=== PATIENT | female | born 1990 ===

== ENCOUNTER 2017-07-10 09:07 | Emergency (ER) | payer OTHER, SELFPAY ==
[2017-07-10] MEDS ORDERED: Sodium Chloride 0.9% 1,000 ML IV STA (09:42)
--- NOTE | 2017-07-10 09:45 | ED PDOC ---
HPI: Headache Time Seen by Provider: 07/10/17 09:29 Chief Complaint (Nursing): Headache Chief Complaint (Provider): Headache History Per: Patient History/Exam Limitations: no limitations Onset/Duration Of Symptoms: Days (x7) Current Symptoms Are (Timing): Still Present Additional Complaint(s): Nano Lassiter is a 27 year old female presenting to the ED for an evaluation of a 1 week history of a frontal headache. She denies fever, trauma, photophobia , or stiff neck. PMD: Non CPH Provider: MD Geovani Past Medical History Reviewed: Historical Data, Nursing Documentation, Vital Signs - Medical History PMH: Migraine - Family History Family History: States: Unknown Family Hx - Home Medications Home Medications: Ambulatory Orders Medication Instructions Recorded Naproxen [Naprosyn] 500 mg PO Q12H #20 tab 07/10/17 traMADol [Ultram] 50 mg PO Q8 #10 tab 07/10/17 - Allergies Allergies/Adverse Reactions: Allergies Allergy/AdvReac Type Severity Reaction Status Date / Time No Known Allergies Allergy Verified 07/10/17 09:33 Review of Systems ROS Statement: Except As Marked, All Systems Reviewed And Found Negative Constitutional: Negative for: Fever Eyes: Negative for: Other (no photophobia) Musculoskeletal: Negative for: Neck Pain (no stiff neck) Neurological: Positive for: Headache (frontal) Physical Exam - Reviewed Nursing Documentation Reviewed: Yes Vital Signs Reviewed: Yes - Physical Exam Appears: Positive for: Well, Non-toxic, No Acute Distress Head Exam: Positive for: ATRAUMATIC, NORMAL INSPECTION, NORMOCEPHALIC Skin: Positive for: Normal Color, Warm, Dry Eye Exam: Positive for: Normal appearance, EOMI, PERRL (PERRL-A) ENT: Positive for: Normal ENT Inspection Neck: Positive for: Normal, Painless ROM, Supple Cardiovascular/Chest: Positive for: Regular Rate, Rhythm, Chest Non Tender Respiratory: Positive for: Normal Breath Sounds. Negative for: Respiratory Distress Gastrointestinal/Abdominal: Positive for: Normal Exam, Bowel Sounds, Soft. Negative for: Tenderness Back: Positive for: Normal Inspection Extremity: Positive for: Normal ROM Neurologic/Psych: Positive for: Alert (x3), Oriented. Negative for: Motor/ Sensory Deficits (or focal deficits ) Medical Decision Making Medical Decision Making: Time: 09:29 Impression: Headache Plan: * CT Head W/O Contrast * ED Urine * NS 0.9% 1,000 ml IV 100 mls/hr * Reglan 10 mg IVP * Toradol 30 mg IVP * Reevaluation Scribe Attestation: Documented by Rosa Isela Jimenez, acting as a scribe for Husam Anna MD. Provider Scribe Attestation: All medical record entries made by the Scribe were at my direction and personally dictated by me. I have reviewed the chart and agree that the record accurately reflects my personal performance of the history, physical exam, medical decision making, and the department course for this patient. I have also personally directed, reviewed, and agree with the discharge instructions and disposition. Disposition - Clinical Impression Clinical Impression: Migraine - Patient ED Disposition Is Patient to be Admitted: No Counseled Patient/Family Regarding: Studies Performed, Diagnosis, Need For Followup, Rx Given - Disposition Referrals: [facility] [Outside] Disposition: Routine/Home Disposition Time: 11:20 Condition: FAIR Prescriptions: Naproxen [Naprosyn] 500 mg PO Q12H #20 tab traMADol [Ultram] 50 mg PO Q8 #10 tab Instructions: Migraine Headache (ED) Forms: [facility] ([place]an)
[2017-07-10 10:12] VITALS: TEMP 97
--- NOTE | 2017-07-10 10:48 | CT ---
PROCEDURE: CT HEAD WITHOUT CONTRAST. HISTORY: headache COMPARISON: None available. TECHNIQUE: Axial computed tomography images were obtained through the head/brain without intravenous contrast. Radiation dose: Total exam DLP = 776 mGy-cm. This CT exam was performed using one or more of the following dose reduction techniques: Automated exposure control, adjustment of the mA and/or kV according to patient size, and/or use of iterative reconstruction technique. FINDINGS: HEMORRHAGE: No intracranial hemorrhage. BRAIN: No mass effect or edema. Normal francis-white matter differentiation and density. No suspicious extra-axial fluid collection. Midline brain and appears unremarkable including the corpus callosum on the craniocervical junction. . VENTRICLES: Unremarkable. No hydrocephalus. CALVARIUM: Unremarkable. PARANASAL SINUSES: Unremarkable as visualized. No significant inflammatory changes. MASTOID AIR CELLS: Unremarkable as visualized. No inflammatory changes. OTHER FINDINGS: None. IMPRESSION: Normal CT of the Head.
[2017-07-10 11:54] VITALS: BP 108/61; PULSE 68; RESP 19; O2SAT 99
== END 2017-07-10 11:58 | disposition home or self-care (01) ==
LOC: H.ER 09:07
DX: G43.909 Migraine, unspecified, not intractable, without status migrainosus (principal)
CPT/HCPCS: 70450; 81025; 96374; 96375; 99284; J1885; J2765; J7040

== ENCOUNTER 2018-02-14 16:37 | Emergency (ER) | payer OTHER, SELFPAY ==
[2018-02-14 16:51] VITALS: BP 117/80; PULSE 60; RESP 16; TEMP 98.4; O2SAT 97
--- NOTE | 2018-02-14 17:08 | ED PDOC ---
HPI: Back Time Seen by Provider: 02/14/18 17:00 Chief Complaint (Nursing): Back Pain Chief Complaint (Provider): Back Pain History Per: Patient History/Exam Limitations: no limitations Onset/Duration Of Symptoms: Days (x 2) Current Symptoms Are (Timing): Still Present Additional Complaint(s): Nano is a 27 y/o female with a history of a herniated disc who presents to the ED complaining of back pain after slipping on the snow on Monday. Patient states that she was taken to [facility] via EMS and "they did nothing for me." She was given IM meds and a motrin rx but complains of persistent pain. She thinks that the slip may have aggravated her herniated disc. PMD: Ilya Olivo Past Medical History Reviewed: Historical Data, Nursing Documentation, Vital Signs Vital Signs: Last Vital Signs Temp 98.4 F 02/14/18 16:48 Pulse 60 02/14/18 16:48 Resp 16 02/14/18 16:48 BP 117/80 02/14/18 16:48 Pulse Ox 97 02/14/18 16:48 - Medical History PMH: Migraine Other PMH: Herniated Disc - Family History Family History: States: Unknown Family Hx - Home Medications Home Medications: Ambulatory Orders Medication Instructions Recorded Naproxen [Naprosyn] 500 mg PO Q12H #20 tab 07/10/17 traMADol [Ultram] 50 mg PO Q8 #10 tab 07/10/17 Naproxen 375 mg PO Q8 PRN #21 tablet 02/14/18 diaZEpam [Valium] 5 mg PO Q6 PRN #6 tab 02/14/18 - Allergies Allergies/Adverse Reactions: Allergies Allergy/AdvReac Type Severity Reaction Status Date / Time No Known Allergies Allergy Verified 02/14/18 16:48 Review of Systems ROS Statement: Except As Marked, All Systems Reviewed And Found Negative Musculoskeletal: Positive for: Back Pain Physical Exam - Reviewed Nursing Documentation Reviewed: Yes Vital Signs Reviewed: Yes - Physical Exam Appears: Positive for: Well, Non-toxic, No Acute Distress Skin: Positive for: Normal Color, Warm, Dry Back: Positive for: Vertebral Tenderness (L2-L3) Neurologic/Psych: Positive for: Alert, Oriented - ECG O2 Sat by Pulse Oximetry: 97 (RA) Pulse Ox Interpretation: Normal - Progress ED Course And Treament: XRY OF SACRUM/COCCYX: READ NEG XRY OF L SPINE: POSSIBLE ACUTE COMPRESSION FX CT OF L SPINE: NO ACUTE INJURY NONOBSTRUCTING 3MM RIGHT KIDNEY STONE PERCOCET 5/325 MG X 1 DOSE WILL WRITE NAPROXEN 325 MG TID X 3 DAYS AND THEN PRN PAIN VALIUM 5MG X 1 DOSE PO Q6 PRN MUSCLE SPASM. [facility] REVIEWED. HAS BEEN PRESCRIBED TRAMADOL 07/10/2017 AND ADIPEX BY PMD. D/W PATIENT SIDE EFFECTS AND BENEFITS OF VALIUM Medical Decision Making Medical Decision Making: Time: 17:04 Initial Impression: Back Injury Initial Plan: --XR LS Spine AP/LAT --Urine Time: 17:37 --XR Sacrum/Coccyx Time: 18:24 --Percocet Time: 18:30 XR LS SPINE FINDINGS: BONES: There is normal alignment of the lumbar vertebral bodies. There is normal lumbar lordosis. There is a sclerotic band in the posterior L5 vertebral body and suspicion of posterior element injury at L4-5. DISC SPACES: The disc heights are maintained. OTHER FINDINGS: There are no pathologic soft tissue calcifications. Both sacroiliac joints are normal. IMPRESSION: Question of acute compression fracture in the posterior L5 vertebral body with injury to the posterior elements at L4-5. Correlation [address] CT scan is recommended for definitive evaluation. XR SACRUM & COCCYX FINDINGS: BONES: Sacrum and coccyx are normal in appearance. No acute fracture or focal lesion. The sacrococcygeal angulation is normal SACROILIAC JOINTS: Unremarkable. OTHER FINDINGS: None. IMPRESSION: No acute fracture or dislocation. Time: 18:35 --CT Lumbar Spine w/o Contrast Scribe Attestation: Documented by Gurdeep Garibay, acting as a scribe for Adrienne Javier PA-C Provider Scribe Attestation: All medical record entries made by the Scribe were at my direction and personally dictated by me. I have reviewed the chart and agree that the record accurately reflects my personal performance of the history, physical exam, medical decision making, and the department course for this patient. I have also personally directed, reviewed, and agree with the discharge instructions and disposition. Disposition - Clinical Impression Clinical Impression: Back pain, Back strain - Patient ED Disposition Is Patient to be Admitted: No - Disposition Referrals: [facility] [Outside] Disposition: Routine/Home Disposition Time: 19:36 Condition: FAIR Prescriptions: diaZEpam [Valium] 5 mg PO Q6 PRN #6 tab PRN Reason: Muscle Spasm Naproxen 375 mg PO Q8 PRN #21 tablet PRN Reason: Pain, Moderate (4-7) Instructions: Low Back Pain (DC) Forms: [facility] ED School/Work Excuse Print Language: CITIZEN OF [place]
[2018-02-14] MEDS ORDERED: Oxycodone/Acetaminophen 5/325 mg Tab PO STA (18:24)
--- NOTE | 2018-02-14 18:31 | RAD ---
PROCEDURE: Radiographs of the Lumbar Spine. HISTORY: fall/injury COMPARISON: No prior. FINDINGS: BONES: There is normal alignment of the lumbar vertebral bodies. There is normal lumbar lordosis. There is a sclerotic band in the posterior L5 vertebral body and suspicion of posterior element injury at L4-5. DISC SPACES: The disc heights are maintained. OTHER FINDINGS: There are no pathologic soft tissue calcifications. Both sacroiliac joints are normal. IMPRESSION: Question of acute compression fracture in the posterior L5 vertebral body with injury to the posterior elements at L4-5. Correlation with CT scan is recommended for definitive evaluation.
--- NOTE | 2018-02-14 18:32 | RAD ---
PROCEDURE: Radiographs of the Sacrum and Coccyx HISTORY: fall injury/pain COMPARISON: None available. TECHNIQUE: Frontal and lateral views of the sacrum and coccyx FINDINGS: BONES: Sacrum and coccyx are normal in appearance. No acute fracture or focal lesion. The sacrococcygeal angulation is normal SACROILIAC JOINTS: Unremarkable. OTHER FINDINGS: None. IMPRESSION: No acute fracture or dislocation.
[2018-02-14] MEDS ORDERED: Oxycodone/Acetaminophen 5/325 mg Tab ONE (19:36)
--- NOTE | 2018-02-15 10:51 | CT ---
PROCEDURE: CT scan of the lumbar spine dated 02/14/2018. HISTORY: Evaluate for acute compression fracture. COMPARISON: None. TECHNIQUE: Axial computed tomography images were obtained of the lumbar spine without the use of intravenous contrast. Coronal and sagittal reformatted images were created and reviewed. Radiation dose: Total exam DLP = mGy-cm. This CT exam was performed using one or more of the following dose reduction techniques: Automated exposure control, adjustment of the mA and/or kV according to patient size, and/or use of iterative reconstruction technique. FINDINGS: VERTEBRAE: No acute compression fractures no retropulsed fragments. Vertebral bodies exhibit normal stature aside from scattered chronic appearing Schmorl's nodes detailed below. Vertebral bodies and facets are normally aligned. DISCS/SPINAL CANAL/NEURAL FORAMINA: There are minor chronic appearing scattered Schmorl's nodes seen at at the T12-L1, L1-L2 and L2-L3 as well as to a lesser degree L3-L4 levels. Vertebral bodies otherwise exhibit normal stature. . L1-2: Chronic appearing Schmorl's nodes. No disc herniation or significant disc bulge. Central canal and exit foramina adequate. L2-3: Chronic appearing Schmorl's node changes. No disc herniation or significant disc bulge. Central canal and exit foramina adequate. . L3-4: Minimal posterior disc space narrowing and minor broad-based bulge of the posterior annulus asymmetrically larger on the right than the left. Changes result in some minor compressive effects on the ventral surface of the thecal sac more so on the right side however central canal appears adequate. Facets a prominent. Exit foramina adequate. L4--5: Minimal posterior disc space narrowing and minimal broad-based bulge of the posterior annulus. Minimal. The disk does not result in any significant canal compromise nor compressive effects on the thecal sac or exiting nerve roots. Facets are slightly hypertrophic. Exit foramina adequate. L5-S1: There is relatively adequate disc height. Minimal broad-based bulge of the posterior annulus does not result in any significant canal compromise. There are no compressive effects on the thecal sac or descending nerve roots. Facets are mildly hypertrophic. Exit foramina adequate. PARASPINAL SOFT TISSUES: Paraspinal soft tissues unremarkable. OTHER FINDINGS: Note made of a small approximately 3.5 mm nonobstructing calculus lower pole right kidney. IMPRESSION: No acute compression fractures. Very minor multilevel degenerative spondylosis as described. Small approximately 3.5 mm nonobstructing calculus lower pole right kidney.
== END 2018-02-14 20:01 | disposition home or self-care (01) ==
LOC: H.ER 16:37
DX: S39.012A Strain of muscle, fascia and tendon of lower back, initial encounter (principal); W00.0XXA Fall on same level due to ice and snow, initial encounter; Z87.39 Personal history of other diseases of the musculoskeletal system and connective tissue

== ENCOUNTER 2018-05-28 01:24 | Emergency (ER) | payer SELFPAY ==
[2018-05-28 01:28] VITALS: BMI 30.5
--- NOTE | 2018-05-28 02:19 | ED PDOC ---
HPI: Abdomen Time Seen by Provider: 05/28/18 01:38 Chief Complaint (Nursing): Abdominal Pain Chief Complaint (Provider): Adominal pain History Per: Patient History/Exam Limitations: no limitations Current Symptoms Are (Timing): Still Present Location Of Pain/Discomfort: RUQ, Epigastric Quality Of Discomfort: "Pain" Associated Symptoms: Nausea, Back Pain. denies: Vomiting Additional History Per: Patient Additional Complaint(s): 27yo female, with history of kidney stones, comes to ER with complaints of acute right upper quadrant epigastric pain, radiaitng to her right back. She states she had some beef ribs yesterday. She reports associated nausea, but denies any vomiting. Patient offers no other medical complaints. PMD: [facility] Past Medical History Reviewed: Historical Data, Nursing Documentation, Vital Signs Vital Signs: Last Vital Signs Temp 98.6 F 05/28/18 06:05 Pulse 86 05/28/18 06:05 Resp 16 05/28/18 06:05 BP 122/78 05/28/18 06:05 Pulse Ox 98 05/28/18 06:05 - Medical History PMH: Migraine - Surgical History Surgical History: No Surg Hx - Family History Family History: States: No Known Family Hx, Unknown Family Hx - Social History Current smoker - smoking cessation education provided: No Alcohol: None Drugs: Denies - Home Medications Home Medications: Ambulatory Orders Medication Instructions Recorded Naproxen [Naprosyn] 500 mg PO Q12H #20 tab 07/10/17 traMADol [Ultram] 50 mg PO Q8 #10 tab 07/10/17 Naproxen 375 mg PO Q8 PRN #21 tablet 02/14/18 diaZEpam [Valium] 5 mg PO Q6 PRN #6 tab 02/14/18 Famotidine [Pepcid] 20 mg PO Q12 #14 tab 05/28/18 traMADol [Ultram] 50 mg PO Q6 #12 tab 05/28/18 - Allergies Allergies/Adverse Reactions: Allergies Allergy/AdvReac Type Severity Reaction Status Date / Time No Known Allergies Allergy Verified 02/14/18 16:48 Review of Systems ROS Statement: Except As Marked, All Systems Reviewed And Found Negative Constitutional: Negative for: Fever, Chills Cardiovascular: Negative for: Chest Pain Respiratory: Negative for: Shortness of Breath Gastrointestinal: Positive for: Nausea, Abdominal Pain. Negative for: Vomiting Musculoskeletal: Positive for: Back Pain Physical Exam - Reviewed Nursing Documentation Reviewed: Yes Vital Signs Reviewed: Yes - Physical Exam Appears: Positive for: Non-toxic, Uncomfortable Head Exam: Positive for: ATRAUMATIC, NORMAL INSPECTION, NORMOCEPHALIC Skin: Positive for: Normal Color Eye Exam: Positive for: Normal appearance Neck: Positive for: Supple Cardiovascular/Chest: Positive for: Regular Rate, Rhythm Respiratory: Positive for: Normal Breath Sounds Gastrointestinal/Abdominal: Positive for: Soft, Tenderness (+ epigastric and right upper quadrant tenderness; + Wilson's sign). Negative for: Mass, Guarding , Rebound Back: Positive for: Normal Inspection Extremity: Positive for: Normal ROM Neurologic/Psych: Positive for: Alert, Oriented. Negative for: Motor/Sensory Deficits - Laboratory Results Result Diagrams: 05/28/18 02:05 05/28/18 02:05 - ECG O2 Sat by Pulse Oximetry: 100 (RA) Pulse Ox Interpretation: Normal Medical Decision Making Medical Decision Making: Impression: acute biliary colic Plan: -- CT Abdomen and Pelvis -- Labs -- Urinalysis -- Pepcid 20mg IV -- Toradol 30mg IV -- Zofran 4mg IV Time:0528 CT Abdomen/Pelvis FINDINGS: Lung bases: Unremarkable. No mass. No consolidation. Heart: Small pericardial effusion. Mediastinum: Small hiatal hernia. ABDOMEN: Liver: Fatty liver. There is a focal liver hypodensity that cannot be further characterized on the current examination. Gallbladder and bile ducts: Gallbladder distention with multiple gallstones. Pancreas: Unremarkable. No mass. No ductal dilation. Spleen: Unremarkable. No splenomegaly. Adrenals: Unremarkable. No mass. Kidneys and ureters: Unremarkable. No solid mass. No hydronephrosis. Stomach and bowel: There are nonspecific fluid filled stomach, small bowel loops. These findings can represent ileus versus gastroenteritis/enteritis versus slow transit versus peristalsis. Diverticulosis. No obstruction. PELVIS: Appendix: Suboptimally seen normal appendix. Bladder: Unremarkable. Reproductive: Bilateral ovarian follicles. Uterus is seen. ABDOMEN and PELVIS: Intraperitoneal space: Unremarkable. No free air. No significant fluid collection. Bones/joints: No acute fracture. No dislocation. Soft tissues: Unremarkable. Vasculature: Unremarkable. No abdominal aortic aneurysm. Lymph nodes: Shotty para-aortic lymph nodes. Multiple subcentimeter mesenteric and ileocolic lymph nodes. Findings are nonspecific but may represent mesenteric adenitis. IMPRESSION: 1. Gallbladder distention with multiple gallstones. Time: 0536 Labs reviewed and shows no clinically significant abnormalities. Time: 0553 On reevaluation, patient reports marked improvement in her symptoms. Patient instructed to follow up with the clinic in 2-3 days. Patient is stable upon discharge home. Scribe Attestation: Documented by Nayeli Last, acting as a scribe for Shaun Trivedi MD. Provider Scribe Attestation: All medical record entries made by the Scribe were at my direction and personally dictated by me. I have reviewed the chart and agree that the record accurately reflects my personal performance of the history, physical exam, medical decision making, and the department course for this patient. I have also personally directed, reviewed, and agree with the discharge instructions and disposition. Disposition - Clinical Impression Clinical Impression: Cholelithiasis - Patient ED Disposition Is Patient to be Admitted: Yes - Disposition Referrals: [facility] [Outside] Disposition: Routine/Home Disposition Time: 05:54 Condition: STABLE Prescriptions: Famotidine [Pepcid] 20 mg PO Q12 #14 tab traMADol [Ultram] 50 mg PO Q6 #12 tab Instructions: Gallstones Forms: [facility] (Estonian) Print Language: GERMAN
[2018-05-28 03:19] LABS: ALB/GLOB RATIO 1.3 (1.0-2.1); ALBUMIN 4.4 g/dL (3.5-5.0); ALT/SGPT 11 U/L (9-52); AST/SGOT 23 U/L (14-36); BLOOD UREA NITROGEN 16 mg/dl (7-17); CALCIUM 9.1 mg/dL (8.4-10.2); GFR AFRICAN-AMERICAN > 60; GFR NON-AFRICAN AMERICAN > 60; LIPASE 121 U/L (23-300)
[2018-05-28 03:24] LABS: BASO # 0.1 K/uL (0.0-0.2); BASO % 0.6 % (0.0-2.0); EOS # 0.2 K/uL (0.0-0.7); EOS % 1.9 % (0.0-4.0); HEMOGLOBIN 13.3 g/dL (12.0-16.0); LYMPH # 3.4 K/uL (1.0-4.3); LYMPH % 32.3 % (20.0-40.0); MEAN CELL VOLUME 88.8 fl (81.0-99.0); MEAN CORPUSCULAR HEMOGLOBIN 30.8 pg (27.0-31.0); MEAN CORPUSCULAR HGB CONC 34.7 g/dL (33.0-37.0); MEAN PLATELET VOLUME 9.9 fl (7.2-11.7); MONO # 0.7 K/uL (0.0-0.8); MONO % 6.6 % (0.0-10.0); NEUT # 6.1 K/uL (1.8-7.0); NEUT % 58.6 % (50.0-75.0); NRBC % 0.1 % (0.0-0.0); RBC 4.31 Mil/uL (3.80-5.20); RED CELL DISTRIBUTION WIDTH 13.4 % (11.5-14.5); WHITE BLOOD COUNT 10.4 K/uL (4.8-10.8)
[2018-05-28] MEDS ORDERED: Iodixanol 320 MG/ML 100 ML BOTTLE IV ONE (03:44)
[2018-05-28] MEDS ORDERED: Sodium Chloride 0.9% 50 ML IV ONE (03:44)
[2018-05-28 06:46] VITALS: BP 122/78; PULSE 86; RESP 16; TEMP 98.6
--- NOTE | 2018-05-28 11:41 | CT ---
Date of service: 05/28/2018 PROCEDURE: CT Abdomen and Pelvis with contrast HISTORY: Abdominal and back pain. COMPARISON: None. TECHNIQUE: Contrast dose: 90 cc Visipaque 320 Radiation dose: Total exam DLP = 487.30 mGy-cm. This CT exam was performed using one or more of the following dose reduction techniques: Automated exposure control, adjustment of the mA and/or kV according to patient size, and/or use of iterative reconstruction technique. FINDINGS: LOWER THORAX: Unremarkable. LIVER: Unremarkable. No gross lesion or ductal dilatation. GALLBLADDER AND BILE DUCTS: Cholelithiasis without CT evidence of acute cholecystitis. PANCREAS: Unremarkable. No gross lesion or ductal dilatation. SPLEEN: Unremarkable. ADRENALS: Unremarkable. No mass. KIDNEYS AND URETERS: Unremarkable. No hydronephrosis. No solid mass. VASCULATURE: Unremarkable. No aortic aneurysm. BOWEL: Constipation without fecal impaction or obstruction. APPENDIX: Normal appendix. PERITONEUM: Unremarkable. No free fluid. No free air. LYMPH NODES: Unremarkable. No enlarged lymph nodes. BLADDER: Unremarkable. REPRODUCTIVE: Unremarkable. BONES: No acute fracture. OTHER FINDINGS: None. IMPRESSION: Cholelithiasis without CT evidence of acute cholecystitis. Additional benign and/or incidental findings described above. Concordant results (preliminary interpretation) provided by [facility]. Procedure Completed: 04:09. Preliminary ([facility]) Report: Dictated and Authenticated: 05:28. Final Interpretation: 11:40.
[2018-05-29 05:01] VITALS: O2SAT 100
== END 2018-05-28 06:02 | disposition home or self-care (01) ==
LOC: H.ER 01:24
DX: K80.70 Calculus of gallbladder and bile duct without cholecystitis without obstruction (principal); K76.0 Fatty (change of) liver, not elsewhere classified; K44.9 Diaphragmatic hernia without obstruction or gangrene
CPT/HCPCS: 74177; 80053; 81025; 83690; 85025; 99284; J1885; J2405; Q9967

== ENCOUNTER 2018-08-04 17:51 | Emergency (ER) | payer SELFPAY ==
[2018-08-04 17:51] VITALS: BMI 30.5
[2018-08-04 18:03] VITALS: TEMP 98.1
[2018-08-04] MEDS ORDERED: Lactated Ringer's 1,000 ML IV STA (18:46)
--- NOTE | 2018-08-04 19:04 | ED PDOC ---
HPI: Female Pain Time Seen by Provider: 08/04/18 18:07 Chief Complaint (Nursing): Female Genitourinary Chief Complaint (Provider): Female Genitourinary History Per: Patient History/Exam Limitations: no limitations Onset/Duration Of Symptoms: Days (x2) Current Symptoms Are (Timing): Still Present Associated Symptoms: Nausea. denies: Fever, Chills, Vomiting, Diarrhea, Constipation, Urinary Symptoms Additional Complaint(s): Nano Prather is a 28 year old female with a past medical history of migraines who is presenting to the ED for evaluation of abdominal pain and vaginal bleeding, onset 2 days ago. Patient complains of upper and lower abdominal pain associated with dark red vaginal bleeding, less than a pas a day. She reports that she has her period on July 17, but it was shorter than usual. She also reports that the pain similar to when she was diagnosed with gallstones. Patient states she has some nausea and has a feeling of fullness when eating but otherwise denies any vomiting, diarrhea, constipation, fevers, chills, and urinary symptoms. Of note, patient adds that she had a headache that started 2 days ago that is similar to previous episodes and denies taking any medications for the pain. PMD: [facility] Abnormal Vaginal Bleeding: Yes Last Menstral Period: July 17, 2018 Past Medical History Reviewed: Historical Data, Nursing Documentation, Vital Signs Vital Signs: Last Vital Signs Temp 98.1 F 08/04/18 18:01 Pulse 71 08/04/18 18:01 Resp 18 08/04/18 18:01 BP 120/76 08/04/18 18:01 Pulse Ox 100 08/04/18 18:01 - Medical History PMH: Migraine - Family History Family History: States: Diabetes, Hypertension, Other Other Family History: High cholesterol - Social History Current smoker - smoking cessation education provided: No Alcohol: None Drugs: Denies - Immunization History Hx Tetanus Toxoid Vaccination: No Hx Influenza Vaccination: No Hx Pneumococcal Vaccination: No - Home Medications Home Medications: Ambulatory Orders Medication Instructions Recorded Naproxen [Naprosyn] 500 mg PO Q12H #20 tab 07/10/17 traMADol [Ultram] 50 mg PO Q8 #10 tab 07/10/17 Naproxen 375 mg PO Q8 PRN #21 tablet 02/14/18 diaZEpam [Valium] 5 mg PO Q6 PRN #6 tab 02/14/18 Famotidine [Pepcid] 20 mg PO Q12 #14 tab 05/28/18 traMADol [Ultram] 50 mg PO Q6 #12 tab 05/28/18 Ibuprofen [Motrin Tab] 600 mg PO Q8 PRN #30 tab 08/04/18 - Allergies Allergies/Adverse Reactions: Allergies Allergy/AdvReac Type Severity Reaction Status Date / Time No Known Allergies Allergy Verified 08/04/18 18:01 Review of Systems ROS Statement: Except As Marked, All Systems Reviewed And Found Negative Constitutional: Negative for: Fever, Chills Gastrointestinal: Positive for: Nausea, Abdominal Pain. Negative for: Vomiting , Diarrhea, Constipation Genitourinary Female: Positive for: Vaginal Bleeding Neurological: Positive for: Headache Physical Exam - Reviewed Nursing Documentation Reviewed: Yes Vital Signs Reviewed: Yes - Physical Exam Appears: Positive for: Non-toxic, No Acute Distress Head Exam: Positive for: ATRAUMATIC, NORMOCEPHALIC Skin: Positive for: Warm, Dry Eye Exam: Positive for: EOMI, PERRL ENT: Negative for: Pharyngeal Erythema, Tonsillar Exudate Neck: Positive for: Painless ROM, Supple Cardiovascular/Chest: Positive for: Regular Rate, Rhythm, Chest Non Tender. Negative for: Murmur Respiratory: Positive for: Normal Breath Sounds. Negative for: Wheezing Gastrointestinal/Abdominal: Positive for: Soft, Tenderness (tenderness to palpation of epigastric region, suprapubic area, right upper quadrant, and right pelvic area ), Other ((-) McBurney's point tenderness, (-) Wilson's sign ) . Negative for: Mass, Distended, Guarding Back: Positive for: Normal Inspection. Negative for: Decreased ROM Extremity: Positive for: Normal ROM. Negative for: Deformity Lymphatic: Negative for: Adenopathy Neurologic/Psych: Positive for: Alert. Negative for: Motor/Sensory Deficits - Laboratory Results Result Diagrams: 08/04/18 19:00 08/04/18 19:00 - ECG O2 Sat by Pulse Oximetry: 100 (RA) Pulse Ox Interpretation: Normal Medical Decision Making Medical Decision Making: Time: 18:48 Impression: Vaginal bleeding and abdominal pain Differentials: ovarian cyst or torsion, fibroid, dysfunctional uterine bleeding , cholelithiasis, pancreatitis, cholecystitis Plan: --Blood Type and Screen --Beta-HCG, Quantitative --CMP --Lipase --ED Urine --ED Urine Dipstick --CBC --Coags --Chlamydia/GC RNA, TMA --Lactated Ringer's 1,000 ml IV --Ultrasound, Gallbladder & Hepatic --Transvaginal Ultrasound Ultrasound Gallbladder: FINDINGS: Liver: Unremarkable. No mass. No intrahepatic bile duct dilation. Measure 14 cm Gallbladder: Contracted and filled with multiple gallstones. Common bile duct: Unremarkable as visualized. No stones. No dilation. 2.1 mm Pancreas: Unremarkable as visualized. Right kidney: Unremarkable. Nonobstructing calyceal stones inferior pole 5 mm No solid mass. No hydronephrosis. RIGHT kidney measures 10 cm x 5 cm x 5.3 cm IMPRESSION: 1. Gallbladder is contracted and filled with multiple stones 2. Nonobstructing calyceal stones lower pole RIGHT kidney 3. Otherwise negative examination Transvaginal Ultrasound: FINDINGS: Uterus/cervix: The cervix measures 3.3 cm. The cervical os is closed. Normal endometrial stripe thickness 2.1 mm. There is mixed echogenicity debris within the endometrial cavity in the lower uterine segment No myometrial mass. Right ovary: Unremarkable. No mass. Normal blood flow. RIGHT ovary 2.3 cm x 2.9 cm x 1.7 cm Left ovary: Simple cyst 2.6 cm x 2.2 cm x 2.1 cm No mass. Normal blood flow. The LEFT ovary measures 3.9 cm x 3.4 cm x 2.7 cm. Free fluid: No free fluid. IMPRESSION: 1. Nonspecific debris within the endometrial cavity lower uterine segment 2. Otherwise negative uterus, cervix, and endometrium 3. Simple cyst LEFT ovary 4. Negative RIGHT ovary Labs unremarkable DW pt findings and plan of care. Stable for discharge Scribe Attestation: Documented by, Clarissa Ball acting as a scribe for Zena Heck MD. Provider Scribe Attestation: All medical record entries made by the Scribe were at my direction and personally dictated by me. I have reviewed the chart and agree that the record accurately reflects my personal performance of the history, physical exam, medical decision making, and the department course for this patient. I have also personally directed, reviewed, and agree with the discharge instructions and disposition. Disposition - Clinical Impression Clinical Impression: Vaginal bleeding, Cholelithiasis - Disposition Referrals: [facility] [Outside] Disposition: Routine/Home Disposition Time: 22:01 Condition: IMPROVED Additional Instructions: BLAND DIET WITH PLENTY OF HYDRATING FLUIDS KEEP A DIARY OF YOUR GALLBLADDER PAIN AND VISIT CLINIC FOR FURTHER EVALUATION AND MANAGEMENT ABNORMAL VAGINAL BLEEDING What is abnormal uterine bleeding? Abnormal uterine bleeding is any heavy or unusual bleeding from the uterus ( through your vagina). It can occur at any time during your monthly cycle, including during your normal menstrual period. Symptoms of abnormal uterine bleeding Vaginal bleeding between periods is one symptom of abnormal uterine bleeding. Having extremely heavy bleeding during your period can also be considered abnormal uterine bleeding. Very heavy bleeding during a period and/or bleeding that lasts more than 7 days is called menorrhagia. For example, women may bleed enough to soak through 1 or more tampons or sanitary pads every hour. What causes abnormal uterine bleeding? A variety of things can cause abnormal uterine bleeding. is a common cause. Polyps or fibroids (small and large growths) in the uterus can also cause bleeding. Rarely, a thyroid problem, infection of the cervix, or cancer of the uterus can cause abnormal uterine bleeding. In most women, abnormal uterine bleeding is caused by a hormone imbalance. When hormones are the problem, doctors call the problem dysfunctional uterine bleeding, or DUB. Abnormal bleeding caused by hormone imbalance is more common in teenagers or in women who are approaching menopause. These are just a few of the problems that can cause abnormal uterine bleeding. These problems can occur at any age, but the likely cause of abnormal uterine bleeding usually depends on your age. Women in their teens, 20s, and 30s A common cause of abnormal bleeding in young women and teenagers is . Many women have abnormal bleeding in the first few months of a normal . Some control pills or the intrauterine device (IUD) can also cause abnormal bleeding. Some young women who have abnormal uterine bleeding do not release an egg from their ovaries (called ovulation) during their menstrual cycle. This is common for teenagers who have just started getting their periods. This causes a hormone imbalance where the estrogen in your body makes the lining of your uterus (called the endometrium) grow until it gets too thick. When your body gets rid of this lining during your period, the bleeding will be very heavy. A hormone imbalance may also cause your body not to know when to shed the lining. This can cause irregular bleeding (spotting) between your periods. Women in their 40s and early 50s In the years before menopause and when menopause begins, women have months when they dont ovulate. This can cause abnormal uterine bleeding, including heavy periods and stockroom inventory clerk, irregular bleeding. Thickening of the lining of the uterus is another cause of bleeding in women in their 40s and 50s. This thickening can be a warning of uterine cancer. If you have abnormal uterine bleeding and youre in this age group, you need to tell your doctor about it. It may be a normal part of getting older, but its important to make sure uterine cancer isnt the cause. Women after menopause Hormone replacement therapy is a common cause of uterine bleeding after menopause. Other causes include endometrial and uterine cancer. These cancers are more common in older women than in younger women. But cancer is not always the cause of abnormal uterine bleeding. Many other problems can cause bleeding after menopause. For this reason, its important to talk to your doctor if you have any bleeding after menopause. How is abnormal uterine bleeding diagnosed? The tests your doctor orders may depend on your age. If you could be , your doctor may order a test. If your bleeding is heavy, in addition to other tests, your doctor may want to check your blood count to make sure you dont have a low blood count from the blood loss. This could lead to iron deficiency and anemia. An ultrasound exam of your pelvic area shows both the uterus and the ovaries. It may also show the cause of your bleeding. Your doctor may want to do an endometrial biopsy. This is a test of the uterine lining. Its done by putting a thin plastic tube (called a catheter) into your uterus. Your doctor will use the catheter to remove a tiny piece of the uterine lining. He or she will send that lining to the lab for testing. The test will show if you have cancer or a change in the cells. A biopsy can be done in the doctors office and causes only mild pain. Another test is a hysteroscopy. A thin tube with a tiny camera in it is put into your uterus. The camera lets your doctor see the inside of your uterus. If anything abnormal shows up, your doctor can get a biopsy. Can abnormal uterine bleeding be prevented or avoided? If your abnormal uterine bleeding is caused by hormonal changes, you will not be able to prevent it. But if your hormonal changes are caused by being overweight, losing weight could help. Your weight affects your hormone production. Maintaining a healthy weight can help prevent abnormal uterine bleeding. Abnormal uterine bleeding treatment There are several treatment options for abnormal bleeding. Your treatment will depend on the cause of your bleeding, your age, and whether you want to get in the future. Your doctor will help you decide which treatment is right for you. Or, if your doctor decides that a hormone imbalance is causing your abnormal bleeding, you and your doctor may decide to wait and see if the bleeding improves on its own. Some treatment options include the following: Intrauterine device (IUD). Your doctor may suggest an IUD. An IUD is a small, plastic device that your doctor inserts into your uterus through your vagina to prevent . One type of IUD releases hormones, and this type can significantly reduce abnormal bleeding. Like control pills, sometimes IUDs can actually cause abnormal bleeding. Tell your doctor if this happens to you. control pills. control pills contain hormones that can stop the lining of your uterus from getting too thick. They also can help keep your menstrual cycle regular and reduce cramping. Some types of control pills, especially the progestin-only pill (also called the mini-pill) can actually cause abnormal bleeding for some women. Let your doctor know if the pill youre taking doesnt control your abnormal bleeding. A D&C, or dilatation and curettage. A D&C is a procedure in which the opening of your cervix is stretched just enough so a surgical tool can be put into your uterus. Your doctor uses this tool to scrape away the lining of your uterus. The removed lining is checked in a lab for abnormal tissue. A D&C is done under general anesthesia (while youre in a sleep-like state). If youre having heavy bleeding, your doctor may perform a D&C both to find out the problem and to treat the bleeding. The D&C itself often makes heavy bleeding stop. Your doctor will decide if this procedure is necessary. Hysterectomy. This type of surgery removes the uterus. If you have a hysterectomy, you wont have any more periods and you wont be able to get . Hysterectomy is major surgery that requires general anesthesia and a hospital stay. It may require a long recovery period. Talk to your doctor about the risks and benefits of hysterectomy. Endometrial ablation is a surgical procedure that destroys the lining of the uterus. Unlike a hysterectomy, it does not remove the uterus. Endometrial ablation may stop all menstrual bleeding in some women. However, some women still have light menstrual bleeding or spotting after endometrial ablation. A few women have regular menstrual periods after the procedure. Women who have endometrial ablation still need to use some form of control even though, in most cases, is not likely after the procedure. Your doctor can do endometrial ablation in several different ways. Newer endometrial ablation techniques do not require general anesthesia or a hospital stay. The recovery time after this procedure is shorter than recovery time after a hysterectomy. Living with abnormal uterine bleeding Abnormal uterine bleeding can impact your life in a negative way. Not being able to predict when bleeding will begin can cause you to be anxious all the time. Also, heavy menstrual bleeding may limit your daily activities during your period. For some women, it even prevents them from leaving the house. If you have heavy menstrual bleeding, try taking ibuprofen (Advil, Motrin) during your period (or a few days before you expect your period, if you know). Ibuprofen is a nonsteroidal anti-inflammatory drug (NSAID). NSAIDs can work to reduce the bleeding during your period. You also should make sure that you are getting enough iron in your diet. Your doctor may prescribe an iron supplement to ensure that you dont become anemic. Questions to ask your doctor * What is the likely cause of my abnormal uterine bleeding? * Is my condition serious? Am I at risk for any other health problems? * Based on the cause, what treatment options do you recommend? * What are the risks and benefits of this treatment? * Will the treatment affect my chances of getting in the future? Prescriptions: Ibuprofen [Motrin Tab] 600 mg PO Q8 PRN #30 tab PRN Reason: Pain, Moderate (4-7) Instructions: Gallstones (DC)
[2018-08-04 19:11] LABS: BASO % 0.6 % (0.0-2.0); EOS # 0.1 K/uL (0.0-0.7); EOS % 1.5 % (0.0-4.0); HEMOGLOBIN 13.5 g/dL (12.0-16.0); LYMPH # 2.5 K/uL (1.0-4.3); MEAN CELL VOLUME 89.1 fl (81.0-99.0); MEAN CORPUSCULAR HEMOGLOBIN 30.1 pg (27.0-31.0); MEAN CORPUSCULAR HGB CONC 33.8 g/dL (33.0-37.0); MEAN PLATELET VOLUME 9.7 fl (7.2-11.7); MONO # 0.6 K/uL (0.0-0.8); MONO % 7.2 % (0.0-10.0); NEUT # 4.6 K/uL (1.8-7.0); NEUT % 58.7 % (50.0-75.0); NRBC % 0.1 % (0.0-0.0); RBC 4.48 Mil/uL (3.80-5.20); RED CELL DISTRIBUTION WIDTH 13.6 % (11.5-14.5); WHITE BLOOD COUNT 7.9 K/uL (4.8-10.8)
[2018-08-04 19:14] LABS: INR 1.1; PROTHROMBIN TIME 12.7 Seconds (9.8-13.1)
[2018-08-04 19:16] LABS: PARTIAL THROMBOPLASTIN TIME 30.5 Seconds (25.6-37.1)
[2018-08-04 19:23] LABS: ALB/GLOB RATIO 1.2 (1.0-2.1); ALBUMIN 4.3 g/dL (3.5-5.0); ALT/SGPT 27 U/L (9-52); AST/SGOT 25 U/L (14-36); BLOOD UREA NITROGEN 14 mg/dl (7-17); CALCIUM 9.3 mg/dL (8.4-10.2); GFR NON-AFRICAN AMERICAN > 60; LIPASE 78 U/L (23-300)
[2018-08-04 22:22] VITALS: BP 117/73; PULSE 69; RESP 19; O2SAT 98
--- NOTE | 2018-08-05 08:50 | US ---
Date of service: 08/04/2018 HISTORY: abd pain RUQ COMPARISON: None. TECHNIQUE: Sonographic evaluation of the right upper quadrant of the abdomen. FINDINGS: LIVER: Measures cm in length. Normal echogenicity of the liver parenchyma. No mass. No intrahepatic bile duct dilatation. GALLBLADDER: Gallstones. COMMON BILE DUCT: Measures mm. No stones. No dilatation. PANCREAS: Unremarkable as visualized. No mass. No ductal dilatation. RIGHT KIDNEY: Measures cm in length. 4 millimeter calculus in the right lower pole. AORTA: No aneurysmal dilatation. IVC: Unremarkable. OTHER FINDINGS: None . IMPRESSION: Gallstones. Right nephrolithiasis.
--- NOTE | 2018-08-05 08:51 | US ---
Date of service: 08/04/2018 PROCEDURE: HISTORY: severe pelvic pain vaginal bleed r/o torsion COMPARISON: TECHNIQUE: FINDINGS: Normal size uterus. 2 millimeter endometrium. Normal right ovary. 2.7 centimeter left ovarian cyst. No free fluid in the pelvis. IMPRESSION: 2.7 centimeter left ovarian cyst.
== END 2018-08-04 22:22 | disposition home or self-care (01) ==
LOC: H.ER 17:51
DX: N93.9 Abnormal uterine and vaginal bleeding, unspecified (principal); K80.20 Calculus of gallbladder without cholecystitis without obstruction
CPT/HCPCS: 76705; 76830; 80053; 81025; 83690; 84702; 85025; 85610; 85730; 86850; 86900; 87491; 87591; 99285; J7120

== ENCOUNTER 2018-11-22 15:40 | Emergency (ER) | payer SELFPAY ==
[2018-11-22 15:40] VITALS: BMI 30.2
[2018-11-22 15:50] VITALS: O2SAT 99
[2018-11-22] MEDS ORDERED: Morphine 4 MG/ML VIAL IV STA (16:15)
[2018-11-22] MEDS ORDERED: Sodium Chloride 0.9% 1,000 ML IV STA (16:15)
--- NOTE | 2018-11-22 16:18 | ED PDOC ---
HPI: Abdomen Time Seen by Provider: 11/22/18 15:54 Chief Complaint (Nursing): Dizziness/Lightheaded Chief Complaint (Provider): Abdominal pain History Per: Patient History/Exam Limitations: no limitations Additional Complaint(s): Pt reports abdominal pain and diarrhea that started last night, took Lomotil without relief. Also c/o BOWERS and dizziness that started yesterday, feels like typical migraine, took Excedrin without relief. Ate full meal @ 1 PM today. Denies fever, nausea, vomiting. Pt scheduled for cholecystectomy on 11/26/18. Abnormal Vaginal Bleeding: No Past Medical History Reviewed: Nursing Documentation, Vital Signs Vital Signs: Last Vital Signs Temp 98.5 F 11/22/18 15:48 Pulse 74 11/22/18 15:48 Resp 18 11/22/18 15:48 BP 143/90 11/22/18 15:48 Pulse Ox 99 11/22/18 15:48 - Medical History PMH: Kidney Stones, Migraine, Chronic Kidney Disease - Surgical History Surgical History: No Surg Hx - Family History Family History: States: Unknown Family Hx, Diabetes, Hypertension - Social History Current smoker - smoking cessation education provided: No Alcohol: None - Immunization History Hx Tetanus Toxoid Vaccination: No Hx Influenza Vaccination: No Hx Pneumococcal Vaccination: No - Home Medications Home Medications: Ambulatory Orders Medication Instructions Recorded Aspirin/Acetaminophen/Caffeine 1 each PO PRN PRN 11/08/18 [Excedrin Migraine Caplet] Folic Acid/Mv,Iron,Min [One Daily 1 each PO DAILY 11/08/18 For Women Tablet] Omeprazole 20 mg PO DAILY 11/08/18 Famotidine [Pepcid] 20 mg PO BID #20 tab 11/22/18 - Allergies Allergies/Adverse Reactions: Allergies Allergy/AdvReac Type Severity Reaction Status Date / Time No Known Allergies Allergy Verified 11/08/18 10:03 Review of Systems Constitutional: Negative for: Fever, Chills Cardiovascular: Negative for: Chest Pain Respiratory: Negative for: Cough, Shortness of Breath Gastrointestinal: Positive for: Abdominal Pain, Diarrhea. Negative for: Nausea, Vomiting Genitourinary Female: Negative for: Dysuria, Hematuria Musculoskeletal: Negative for: Back Pain Skin: Negative for: Rash, Lesions Neurological: Positive for: Headache, Dizziness. Negative for: Weakness, Numbness, Altered Mental Status Physical Exam - Reviewed Nursing Documentation Reviewed: Yes Vital Signs Reviewed: Yes - Physical Exam Appears: Positive for: No Acute Distress (Talking on phone) Head Exam: Positive for: ATRAUMATIC, NORMAL INSPECTION Skin: Positive for: Normal Color, Warm, Dry Eye Exam: Positive for: Normal appearance, EOMI, PERRL Cardiovascular/Chest: Positive for: Regular Rate, Rhythm Respiratory: Positive for: Normal Breath Sounds Gastrointestinal/Abdominal: Positive for: Bowel Sounds, Soft, Tenderness (Generalized). Negative for: Mass, Distended, Guarding, Rebound Back: Positive for: Normal Inspection Extremity: Positive for: Normal ROM Neurologic/Psych: Positive for: Alert, Oriented - Laboratory Results Result Diagrams: 11/22/18 16:30 11/22/18 16:30 - ECG O2 Sat by Pulse Oximetry: 99 Medical Decision Making Medical Decision Makin yo female with abdominal pain and BOWERS. - labs - CT abd/pelvis - Morphine - IVF Upon review of old receords, pt had normal CT head on 07/09/18. Accession No. : [id number] Patient Name / ID : RONNY VILLATORO / [id number] Exam Date : 11/22/2018 18:15:06 ( Approved ) Study Comment : Sex / Age : F / 28Y Creator : Andi Smith MD Dictator : Andi Smith MD [employer] : District Wire Chief : Andi Smith MD Approver2 : Report Date : 11/22/2018 18:40:50 My Comment : Date of service: 11/22/2018 PROCEDURE: CT Abdomen and Pelvis with contrast HISTORY: Abd pain, diarrhea COMPARISON: 05/28/2018. CT abdomen and pelvis 08/04/2018 abdominal ultrasound TECHNIQUE: Intravenous contrast dose: 95 cc Omnipaque 300. Radiation dose: Total exam DLP = 692.91 mGy-cm. This CT exam was performed using one or more of the following dose reduction techniques: Automated exposure control, adjustment of the mA and/or kV according to patient size, and/or use of iterative reconstruction technique. FINDINGS: LOWER THORAX: Unremarkable. LIVER: Unremarkable. No gross lesion or ductal dilatation. GALLBLADDER AND BILE DUCTS: Cholelithiasis without CT evidence of acute cholecystitis. PANCREAS: Unremarkable. No gross lesion or ductal dilatation. SPLEEN: Unremarkable. ADRENALS: Unremarkable. No mass. KIDNEYS AND URETERS: Unremarkable. No hydronephrosis. No solid mass. Lower pole calculus right kidney 3 mm. Stable finding VASCULATURE: Unremarkable. No aortic aneurysm. No atherosclerotic calcification or mural plaque present. BOWEL: Constipation without fecal impaction or obstruction. Thickening of the wall of the left vijay colon likely reflects nondistention rather than colitis. APPENDIX: A normal appendix is visualized in it's entirety. PERITONEUM: Unremarkable. No free fluid. No free air. LYMPH NODES: Unremarkable. No enlarged lymph nodes. BLADDER: Unremarkable. REPRODUCTIVE: Unremarkable. BONES: No acute fracture. OTHER FINDINGS: None. IMPRESSION: No acute or significant findings related to/ accounting for the clinical presentation. Additional benign and/or incidental findings described above. No significant interval change compared to the prior examination(s). Disposition - Clinical Impression Clinical Impression: Headache, Cholelithiasis, Gastritis - Disposition Referrals: [facility] [Outside] Disposition: Routine/Home Disposition Time: 19:59 Condition: STABLE Prescriptions: Famotidine [Pepcid] 20 mg PO BID #20 tab Instructions: Gastritis, Gallstones, Headache, Adult Forms: [employer] (Hungarian) Print Language: MACEDONIAN
[2018-11-22] MEDS ORDERED: Morphine 4 MG/ML VIAL ONE (16:28)
[2018-11-22 17:18] LABS: ALB/GLOB RATIO 1.2 (1.0-2.1); ALT/SGPT 52 U/L (9-52); AST/SGOT 76 U/L (14-36); BASO % 0.6 % (0.0-2.0); BLOOD UREA NITROGEN 14 mg/dl (7-17); EOS # 0.1 K/uL (0.0-0.7); EOS % 1.4 % (0.0-4.0); GFR NON-AFRICAN AMERICAN > 60; HEMOGLOBIN 12.4 g/dL (12.0-16.0); LIPASE 63 U/L (23-300); LYMPH # 2.3 K/uL (1.0-4.3); LYMPH % 30.9 % (20.0-40.0); MEAN CELL VOLUME 89.8 fl (81.0-99.0); MEAN CORPUSCULAR HEMOGLOBIN 29.8 pg (27.0-31.0); MEAN CORPUSCULAR HGB CONC 33.2 g/dL (33.0-37.0); MEAN PLATELET VOLUME 10.1 fl (7.2-11.7); MONO # 0.7 K/uL (0.0-0.8); MONO % 9.2 % (0.0-10.0); NEUT # 4.2 K/uL (1.8-7.0); NEUT % 57.9 % (50.0-75.0); NRBC % 0.1 % (0.0-0.0); RBC 4.16 Mil/uL (3.80-5.20); RED CELL DISTRIBUTION WIDTH 13.2 % (11.5-14.5); WHITE BLOOD COUNT 7.3 K/uL (4.8-10.8)
[2018-11-22 17:21] LABS: SQUAMOUS EPITHIAL 1 /hpf (0-5); URINE BILIRUBIN NEGATIVE (NEGATIVE); URINE BLOOD NEGATIVE (NEGATIVE); URINE CLARITY CLEAR (Clear); URINE COLOR STRAW (YELLOW); URINE GLUCOSE (UA) NEG (NEGATIVE); URINE LEUKOCYTE ESTERASE SMALL Leu/uL (Negative); URINE PROTEIN NEGATIVE (NEGATIVE); URINE UROBILINOGEN 0.2-1.0 mg/dL (0.2-1.0)
[2018-11-22 17:37] LABS: PROTHROMBIN TIME 11.6 Seconds (9.8-13.1)
[2018-11-22 17:39] LABS: PARTIAL THROMBOPLASTIN TIME 26.9 Seconds (25.6-37.1)
[2018-11-22] MEDS ORDERED: Iohexol 300 100 ML IJ ONE (18:11)
[2018-11-22] MEDS ORDERED: Sodium Chloride 0.9% 50 ML IV ONE (18:11)
--- NOTE | 2018-11-22 18:44 | CT ---
Date of service: 11/22/2018 PROCEDURE: CT Abdomen and Pelvis with contrast HISTORY: Abd pain, diarrhea COMPARISON: 05/28/2018. CT abdomen and pelvis 08/04/2018 abdominal ultrasound TECHNIQUE: Intravenous contrast dose: 95 cc Omnipaque 300. Radiation dose: Total exam DLP = 692.91 mGy-cm. This CT exam was performed using one or more of the following dose reduction techniques: Automated exposure control, adjustment of the mA and/or kV according to patient size, and/or use of iterative reconstruction technique. FINDINGS: LOWER THORAX: Unremarkable. LIVER: Unremarkable. No gross lesion or ductal dilatation. GALLBLADDER AND BILE DUCTS: Cholelithiasis without CT evidence of acute cholecystitis. PANCREAS: Unremarkable. No gross lesion or ductal dilatation. SPLEEN: Unremarkable. ADRENALS: Unremarkable. No mass. KIDNEYS AND URETERS: Unremarkable. No hydronephrosis. No solid mass. Lower pole calculus right kidney 3 mm. Stable finding VASCULATURE: Unremarkable. No aortic aneurysm. No atherosclerotic calcification or mural plaque present. BOWEL: Constipation without fecal impaction or obstruction. Thickening of the wall of the left vijay colon likely reflects nondistention rather than colitis. APPENDIX: A normal appendix is visualized in it's entirety. PERITONEUM: Unremarkable. No free fluid. No free air. LYMPH NODES: Unremarkable. No enlarged lymph nodes. BLADDER: Unremarkable. REPRODUCTIVE: Unremarkable. BONES: No acute fracture. OTHER FINDINGS: None. IMPRESSION: No acute or significant findings related to/ accounting for the clinical presentation. Additional benign and/or incidental findings described above. No significant interval change compared to the prior examination(s).
[2018-11-22 21:12] VITALS: BP 128/85; PULSE 69; RESP 16; TEMP 98.3
== END 2018-11-22 20:40 | disposition home or self-care (01) ==
LOC: H.ER 15:40
DX: K29.70 Gastritis, unspecified, without bleeding (principal); K80.20 Calculus of gallbladder without cholecystitis without obstruction; R51 Headache
CPT/HCPCS: 74177; 80053; 81003; 81025; 83690; 85025; 85610; 85730; 99285; J2270; J7030; Q9967

== ENCOUNTER 2018-11-26 06:20 | Day surgery (SDC) | payer SELFPAY ==
[2018-11-08 10:03] VITALS: BMI 30.2
--- NOTE | 2018-11-26 07:10 | CP.SDSHP ---
Same Day Surgery H & P - History Proposed Procedure: Lap cholecystectomy Pre-Op Diagnosis: Cholecystitis - Allergies Allergies: Allergies No Known Allergies Allergy (Verified 11/08/18 10:03) - Physical Exam Mental Status: Alert & Oriented x3 Neuro: WNL Heart: WNL Lungs: WNL GI: WNL - {Optional Preform as Required} Breast: WNL Abdomen: WNL Rectal: WNL Integument: WNL COMMUNITY DEVELOPMENT TECHNICIAN: WNL : WNL Ortho: WNL ENT: WNL - Impression Impression: 28F presents for lap cholecystitis 2/2 gall bladder disease - Date & Time Date: 11/26/18 Time: 07:08 Short Stay Discharge - Short Stay Discharge Admitting Diagnosis/Reason for Visit: K80.20 Disposition: HOME/ ROUTINE Referrals: Fausto Sandoval MD [Staff Provider] - Follow-up: 1) Please follow up in 2 weeks Instructions: Cholecystectomy, Laparoscopic Surgery Additional Instructions (Diet, Activity): 1) May return to regular activity 2) May shower but do not bath 3) Glue on incisions will fall off on their own 4) Return to ED for any emergencies
[2018-11-26] MEDS ORDERED: Propofol 10 mg/ml Inj (20 ML) ONE (07:22)
[2018-11-26] MEDS ORDERED: Rocuronium 10 mg/ml (5 ml) ONE (07:23)
[2018-11-26] MEDS ORDERED: Lidocaine 1% 5ml Abboject ONE (07:23)
[2018-11-26] MEDS ORDERED: Lidocaine 4% (Laryng-O-Jet) Kit MM ONE (07:23)
[2018-11-26] MEDS ORDERED: Neostigmine 1:1000 (1 mg/ml) Inj ONE (07:23)
[2018-11-26] MEDS ORDERED: Midazolam 2 MG/2 ML VIAL ONE (07:23)
[2018-11-26] MEDS ORDERED: Sevoflurane - Inhalation Anesthetic Liq (250 ml) ONE (07:29)
[2018-11-26] MEDS ORDERED: ceFAZolin IV 1 gm in Dextrose 2 GM/100 ML BAG IVPB ONE (07:39)
[2018-11-26] MEDS ORDERED: Succinylcholine 200 mg/10 ml Inj IV ONE (07:39)
[2018-11-26] MEDS ORDERED: Lactated Ringer's 1,000 ML IV ONE (07:45)
[2018-11-26] MEDS ORDERED: Lactated Ringer's 1,000 ML IV SCH (10:00)
[2018-11-26] MEDS: HYDROmorphone 0.5 mg/0.5 ml ISec IVP PRN ×4 (10:05→10:45)
--- NOTE | 2018-11-26 10:05 | PCM.SURG1 ---
Surgeon's Initial Post Op Note - Surgeon's Notes Surgeon: panfilo Sandoval MD Occupational Psychologist: Veronica PGY3. Peter PGY3 Pre-Operative Diagnosis: cholecystitis Operative Findings: Inflammed Gallbladder, gallstones Post-Operative Diagnosis: cholecystitis Operation Performed: Laparoscopic cholecystectomy Specimen/Specimens Removed: gallbladder Estimated Blood Loss: EBL {In ML}: 20 Date of Surgery/Procedure: 11/26/18 Time of Surgery/Procedure: 10:05
[2018-11-26] MEDS ORDERED: Dexamethasone 4 mg/1 ml IVP PRN (10:30)
[2018-11-26 12:26] VITALS: RESP 16; O2SAT 97
--- NOTE | 2018-11-26 13:32 | OP ---
PROCEDURE DATE: 11/26/2018 PREOPERATIVE DIAGNOSIS: Acute appendicitis. POSTOPERATIVE DIAGNOSIS: Acute appendicitis PROCEDURE: Laparoscopic cholecystectomy. SURGEON: Fausto Sandoval MD GIS ANALYST DEVELOPER: Mike Martin DO and Keagan Green DO ANESTHESIA: General. ANESTHESIOLOGIST: MD Gerardo ESTIMATED BLOOD LOSS: 20 mL DESCRIPTION OF PROCEDURE: With the patient in supine position after administration of general anesthesia and intubation, the abdomen was prepped and draped in the usual sterile fashion. An infraumbilical transverse incision was made through the skin and a Veress needle puncture was performed through the incision with insufflation to 50 mm of water pressure with CO2. Upon insufflation, the abdomen was entered with the bladed trocar through the same infraumbilical incision and a camera was used to visualize the intraabdominal space. A subxiphoid incision was made along with two lateral subcostal 5-mm incisions also made. Trocars were placed through all four ports. The liver was lifted anteriorly to visualize the gallbladder. Upon visualization of the gallbladder, the fundus was grasped and retracted cephalad exposing the length of the gallbladder. Adhesions were noted obscuring the gallbladder and were taken down with laparoscopic scissors and laparoscopic adhesiolysis. Upon retraction of the gallbladder cephalad, the second grasper was used to retract the infundibulum laterally. [place] dissector was used to dissect fatty tissue in the triangle of Calot. Upon dissection of the fatty tissue and peritoneum, the cystic duct was seen directly entering the gallbladder. Further dissection was done to skeletonize the cystic duct. Upon identifying the cystic duct, care was directed towards the cystic artery, which was directed posterior to the cystic duct. Further dissection was done to skeletonize the cystic artery, which was also seen going into the gallbladder directly. Upon identifying the critical view of safety, the cystic duct was clipped with one clip proximally and two distally and transected with the laparoscopic scissors. Care was taken to the cystic artery where two clips were placed distally and one placed proximally and also transected with the laparoscopic scissors. Upon transection of both the cystic duct and cystic artery, further dissection was done to make sure that there was no posterior branch coming off the cystic artery. The gallbladder was from the liver bed using an electrocautery hook. Care was taken to minimize the bleeding coming from the liver bed. Upon dissecting the gallbladder off the liver bed, care was taken to cauterize any bleeding noted from the liver bed. There was no active oozing coming from the liver bed. There was irrigation and suction of gallbladder fossa until clear fluid was seen coming out of the suction tube. The gallbladder was then removed via the infraumbilical incision with stones noted within it. All ports were taken out under direct visualization. The infraumbilical incision was closed using a 0 Vicryl stitch in a [id number] manner in the fascial layer, and all 4 incisions were closed with 4-0 Monocryl and Dermabond was used for superficial dressing. The patient tolerated the procedure well and was transferred to the recovery room in stable condition. Estimated blood loss in the procedure was 20 mL. Mike Martin DO Fausto Sandoval MD SHAR
[2018-11-26 16:16] VITALS: BP 99/65; PULSE 55; TEMP 98.1
== END 2018-11-26 17:54 | disposition home or self-care (01) ==
LOC: H.OPSURG 06:20
PROVIDERS: ATTEND Specialist
DX: K80.20 Calculus of gallbladder without cholecystitis without obstruction (principal); K21.9 Gastro-esophageal reflux disease without esophagitis
CPT/HCPCS: 47562; 88304; J0330; J0690; J1100; J1170; J1885; J2250; J2405; J2704; J2710; J2765; J3010; J7120

== ENCOUNTER 2018-11-27 11:41 | Emergency (ER) | payer SELFPAY ==
[2018-11-27 11:43] VITALS: BMI 30.2
--- NOTE | 2018-11-27 12:22 | ED PDOC ---
HPI: Back Time Seen by Provider: 11/27/18 12:09 Chief Complaint (Nursing): Abdominal Pain Chief Complaint (Provider): back pain History Per: Patient History/Exam Limitations: no limitations Onset/Duration Of Symptoms: Days (x2) Current Symptoms Are (Timing): Still Present Additional Complaint(s): 28 year old female, status post cholecystectomy on 11/26/18, presents to ED for evaluation of increasing right-sided back pain. Patient states she took prescribed Percocet last at 0600 earlier this morning with minimal relief. Otherwise, she denies fever, chills, nausea, vomiting, pain to surgical site, diarrhea, or constipation. PCP: Dr. Renata Valencia Past Medical History Reviewed: Historical Data, Nursing Documentation, Vital Signs - Medical History PMH: Kidney Stones, Migraine, Chronic Kidney Disease - Surgical History Surgical History: Cholecystectomy (11/26/18) - Family History Family History: States: Diabetes, Hypertension - Social History Current smoker - smoking cessation education provided: No Alcohol: None Drugs: Denies - Immunization History Hx Tetanus Toxoid Vaccination: No Hx Influenza Vaccination: No Hx Pneumococcal Vaccination: No - Home Medications Home Medications: Ambulatory Orders Medication Instructions Recorded Aspirin/Acetaminophen/Caffeine 1 each PO PRN PRN 11/08/18 [Excedrin Migraine Caplet] Folic Acid/Mv,Iron,Min [One Daily 1 each PO DAILY 11/08/18 For Women Tablet] Omeprazole 20 mg PO DAILY 11/08/18 Famotidine [Pepcid] 20 mg PO BID #20 tab 11/22/18 oxyCODONE/Acetaminophen [Percocet 5 - 325 mg PO Q4 PRN 11/26/18 5/325 mg Tab] Simethicone [Anti-Gas] 360 mg PO QID PRN #20 capsule 11/27/18 - Allergies Allergies/Adverse Reactions: Allergies Allergy/AdvReac Type Severity Reaction Status Date / Time No Known Allergies Allergy Verified 11/27/18 12:02 Review of Systems ROS Statement: Except As Marked, All Systems Reviewed And Found Negative Constitutional: Negative for: Fever, Chills Gastrointestinal: Negative for: Nausea, Vomiting, Abdominal Pain, Diarrhea, Constipation Musculoskeletal: Positive for: Back Pain (right-sided) Physical Exam - Reviewed Nursing Documentation Reviewed: Yes Vital Signs Reviewed: Yes - Physical Exam Appears: Positive for: Uncomfortable, In Acute Distress (painful) Head Exam: Positive for: ATRAUMATIC, NORMAL INSPECTION, NORMOCEPHALIC Skin: Positive for: Normal Color Eye Exam: Positive for: Normal appearance ENT: Positive for: Normal ENT Inspection Neck: Positive for: Normal Cardiovascular/Chest: Positive for: Regular Rate, Rhythm, Chest Non Tender Respiratory: Positive for: Normal Breath Sounds. Negative for: Wheezing, Respiratory Distress Pulses-Dorsalis Pedis (L): 2+ Pulses-Dorsalis Pedis (R): 2+ Gastrointestinal/Abdominal: Positive for: Soft, Tenderness (RUQ/RLQ/LLQ), Other (surgical site is clean, dry, and intact) Back: Positive for: R CVA Tenderness. Negative for: L CVA Tenderness Extremity: Positive for: Normal ROM (upper/lower). Negative for: Pedal Edema, Calf Tenderness Neurologic/Psych: Positive for: Alert, Oriented. Negative for: Motor/Sensory Deficits - Laboratory Results Result Diagrams: 11/27/18 13:05 11/27/18 13:05 Urine POC: Negative Medical Decision Making Medical Decision Making: Time: 1215 Initial Plan: * Labs * CT ABD/pelvis * IV fluids * Morphine 2mg IV Time: 1439 --CT ABD/pelvis FINDINGS: LOWER THORAX: Minimal linear scar/atelectasis both lower lobes. LIVER: Unremarkable. No gross lesion or ductal dilatation. GALLBLADDER AND BILE DUCTS: Status post cholecystectomy. Minimal fluid in gallbladder fossa. Surgical clips in gallbladder fossa. No theresa collection identified. PANCREAS: Unremarkable. No gross lesion or ductal dilatation. SPLEEN: Unremarkable. ADRENALS: Unremarkable. No mass. KIDNEYS AND URETERS: Unremarkable. No hydronephrosis. No solid mass. VASCULATURE: Unremarkable. No aortic aneurysm. No aortic atherosclerotic calcification or mural plaque present. BOWEL: Unremarkable. No obstruction. No gross mural thickening. APPENDIX: Normal appendix. PERITONEUM: Trace pneumoperitoneum. Minimal fluid in cul-de-sac. Consistent with recent cholecystectomy. LYMPH NODES: Unremarkable. No enlarged lymph nodes. BLADDER: Unremarkable. REPRODUCTIVE: Unremarkable uterus. Irregularly-shaped peripherally enhancing structure within right ovary, 1.6 cm. Consistent with ruptured or involuting follicle. BONES: No acute fracture. OTHER FINDINGS: None. IMPRESSION: Trace pneumoperitoneum and minimal ascites status post cholecystectomy. Minimal fluid in gallbladder fossa. Incidental ruptured or involuting right ovarian follicle. No additional acute abnormality. Time: 1532 --president & founder made aware of case. Pt evaluated by president & founder in ED, discharge home. -------- --------- Scribe Attestation: Documented by Kristine Ordonez, acting as a scribe for Debby Hopper MD. Provider Scribe Attestation: All medical record entries made by the Scribe were at my direction and personally dictated by me. I have reviewed the chart and agree that the record accurately reflects my personal performance of the history, physical exam, medical decision making, and the department course for this patient. I have also personally directed, reviewed, and agree with the discharge instructions and di sposition. Disposition - Clinical Impression Clinical Impression: Postoperative abdominal pain - Patient ED Disposition Is Patient to be Admitted: No - Disposition Referrals: Fausto Sandoval MD [Staff Provider] - Disposition: Routine/Home Disposition Time: 18:10 Condition: STABLE Prescriptions: Simethicone [Anti-Gas] 360 mg PO QID PRN #20 capsule PRN Reason: Other Instructions: Acute Abdomen (Belly Pain), Postoperative Pain (DC) Forms: [employer] (Icelandic) Print Language: SWEDISH
[2018-11-27] MEDS ORDERED: Morphine 4 MG/ML VIAL IV STA (12:26)
[2018-11-27] MEDS ORDERED: Sodium Chloride 0.9% 1,000 ML IV STA (12:26)
[2018-11-27] MEDS ORDERED: Morphine 4 MG/ML VIAL ONE (12:41)
[2018-11-27 13:00] LABS: SQUAMOUS EPITHIAL 5 /hpf (0-5); URINE BACTERIA RARE (<OCC); URINE BILIRUBIN NEGATIVE (NEGATIVE); URINE BLOOD NEGATIVE (NEGATIVE); URINE CLARITY CLEAR (Clear); URINE COLOR STRAW (YELLOW); URINE GLUCOSE (UA) NEG (NEGATIVE); URINE LEUKOCYTE ESTERASE SMALL Leu/uL (Negative); URINE PROTEIN NEGATIVE (NEGATIVE); URINE UROBILINOGEN 0.2-1.0 mg/dL (0.2-1.0)
[2018-11-27 13:17] LABS: BASO % 0.2 % (0.0-2.0); EOS % 0.1 % (0.0-4.0); HEMOGLOBIN 12.7 g/dL (12.0-16.0); LYMPH # 2.5 K/uL (1.0-4.3); LYMPH % 19.6 % (20.0-40.0); MEAN CELL VOLUME 89.9 fl (81.0-99.0); MEAN CORPUSCULAR HEMOGLOBIN 29.9 pg (27.0-31.0); MEAN CORPUSCULAR HGB CONC 33.2 g/dL (33.0-37.0); MEAN PLATELET VOLUME 9.9 fl (7.2-11.7); MONO # 0.8 K/uL (0.0-0.8); MONO % 6.1 % (0.0-10.0); NEUT # 9.5 K/uL (1.8-7.0); RBC 4.25 Mil/uL (3.80-5.20); RED CELL DISTRIBUTION WIDTH 13.3 % (11.5-14.5); WHITE BLOOD COUNT 12.9 K/uL (4.8-10.8)
[2018-11-27 13:21] LABS: INR 1.2; PROTHROMBIN TIME 13.6 Seconds (9.8-13.1)
[2018-11-27 13:24] LABS: PARTIAL THROMBOPLASTIN TIME 28.3 Seconds (25.6-37.1)
[2018-11-27 13:31] LABS: ALB/GLOB RATIO 1.2 (1.0-2.1); ALBUMIN 4.3 g/dL (3.5-5.0); ALT/SGPT 136 U/L (9-52); AST/SGOT 100 U/L (14-36); BLOOD UREA NITROGEN 12 mg/dl (7-17); CALCIUM 9.3 mg/dL (8.4-10.2); GFR NON-AFRICAN AMERICAN > 60
[2018-11-27] MEDS ORDERED: Iohexol 300 100 ML IJ ONE (14:03)
[2018-11-27] MEDS ORDERED: Sodium Chloride 0.9% 50 ML IV ONE (14:04)
--- NOTE | 2018-11-27 14:43 | CT ---
Date of service: 11/27/2018 PROCEDURE: CT Abdomen and Pelvis with contrast HISTORY: Abd pain, 1 day s/p cholecystectomy COMPARISON: 11/22/2018 TECHNIQUE: Contrast dose: 95 mL Omnipaque 300 Radiation dose: Total exam DLP = 704.48 mGy-cm. This CT exam was performed using one or more of the following dose reduction techniques: Automated exposure control, adjustment of the mA and/or kV according to patient size, and/or use of iterative reconstruction technique. FINDINGS: LOWER THORAX: Minimal linear scar/atelectasis both lower lobes. LIVER: Unremarkable. No gross lesion or ductal dilatation. GALLBLADDER AND BILE DUCTS: Status post cholecystectomy. Minimal fluid in gallbladder fossa. Surgical clips in gallbladder fossa. No theresa collection identified. PANCREAS: Unremarkable. No gross lesion or ductal dilatation. SPLEEN: Unremarkable. ADRENALS: Unremarkable. No mass. KIDNEYS AND URETERS: Unremarkable. No hydronephrosis. No solid mass. VASCULATURE: Unremarkable. No aortic aneurysm. No aortic atherosclerotic calcification or mural plaque present. BOWEL: Unremarkable. No obstruction. No gross mural thickening. APPENDIX: Normal appendix. PERITONEUM: Trace pneumoperitoneum. Minimal fluid in cul-de-sac. Consistent with recent cholecystectomy. LYMPH NODES: Unremarkable. No enlarged lymph nodes. BLADDER: Unremarkable. REPRODUCTIVE: Unremarkable uterus. Irregularly-shaped peripherally enhancing structure within right ovary, 1.6 cm. Consistent with ruptured or involuting follicle. BONES: No acute fracture. OTHER FINDINGS: None. IMPRESSION: Trace pneumoperitoneum and minimal ascites status post cholecystectomy. Minimal fluid in gallbladder fossa. Incidental ruptured or involuting right ovarian follicle. No additional acute abnormality.
[2018-11-27] MEDS ORDERED: Fluconazole 150 MG TAB PO STA (15:05)
[2018-11-27] MEDS ORDERED: Potassium Chloride 20 mEq ER Tab PO STA (15:06)
[2018-11-27] MEDS ORDERED: Potassium Chloride 20 mEq ER Tab PO ONE (15:31)
[2018-11-27] MEDS ORDERED: Fluconazole 150 MG TAB PO ONE (15:53)
[2018-11-27 18:06] VITALS: RESP 18; TEMP 98.7; O2SAT 98
[2018-11-27 18:08] VITALS: BP 121/82; PULSE 88
== END 2018-11-27 16:17 | disposition home or self-care (01) ==
LOC: H.ER 11:41
DX: R10.9 Unspecified abdominal pain (principal); G89.18 Other acute postprocedural pain; Z87.442 Personal history of urinary calculi; N18.9 Chronic kidney disease, unspecified; Z90.49 Acquired absence of other specified parts of digestive tract
CPT/HCPCS: 74177; 80053; 81003; 81025; 85025; 85610; 85730; 96360; 99284; J2270; J7030; Q9967

== ENCOUNTER 2019-03-06 09:27 | Emergency (ER) | payer SELFPAY ==
[2019-03-06 09:30] VITALS: BMI 31.1
[2019-03-06 09:32] VITALS: RESP 18; TEMP 98.1; O2SAT 99
--- NOTE | 2019-03-06 10:04 | ED PDOC ---
HPI: Female Pain Time Seen by Provider: 03/06/19 09:48 Chief Complaint (Nursing): Female Genitourinary History Per: Patient Onset/Duration Of Symptoms: Days (2) Current Symptoms Are (Timing): Better Severity: Mild Quality Of Discomfort: Cramping Additional Complaint(s): Lower abdominal pain associated with moderate vaginal bleeding with cramps since yesterday. Bleeding has stopped since arrival to ED. No injury. Abnormal Vaginal Bleeding: Yes Last Menstral Period: 13 weeks ago : 2 Para: 1 Past Medical History Vital Signs: Last Vital Signs Temp 98.1 F 03/06/19 09:30 Pulse 67 03/06/19 09:30 Resp 18 03/06/19 09:30 BP 120/82 03/06/19 09:30 Pulse Ox 99 03/06/19 09:30 - Medical History PMH: Kidney Stones, Migraine, Chronic Kidney Disease - Surgical History Surgical History: Cholecystectomy (11/26/18) - Family History Family History: States: Unknown Family Hx, Diabetes, Hypertension - Immunization History Hx Tetanus Toxoid Vaccination: No Hx Influenza Vaccination: No Hx Pneumococcal Vaccination: No - Home Medications Home Medications: Ambulatory Orders Medication Instructions Recorded Aspirin/Acetaminophen/Caffeine 1 each PO PRN PRN 11/08/18 [Excedrin Migraine Caplet] Folic Acid/Mv,Iron,Min [One Daily 1 each PO DAILY 11/08/18 For Women Tablet] Omeprazole 20 mg PO DAILY 11/08/18 Famotidine [Pepcid] 20 mg PO BID #20 tab 11/22/18 oxyCODONE/Acetaminophen [Percocet 5 - 325 mg PO Q4 PRN 11/26/18 5/325 mg Tab] Simethicone [Anti-Gas] 360 mg PO QID PRN #20 capsule 11/27/18 - Allergies Allergies/Adverse Reactions: Allergies Allergy/AdvReac Type Severity Reaction Status Date / Time No Known Allergies Allergy Verified 03/06/19 09:40 Review of Systems Constitutional: Negative for: Fever Gastrointestinal: Positive for: Abdominal Pain Genitourinary Female: Positive for: Vaginal Bleeding. Negative for: Dysuria, Frequency Musculoskeletal: Positive for: Back Pain Neurological: Negative for: Dizziness Physical Exam - Physical Exam Appears: Positive for: Non-toxic, No Acute Distress Skin: Positive for: Normal Color, Warm, DRY Gastrointestinal/Abdominal: Positive for: Bowel Sounds, Soft. Negative for: Tenderness Pelvic Exam: Positive for: External Exam Normal, Blood (Small amount of blood in vault. Cervix closed). Negative for: Tender Uterus - Laboratory Results Result Diagrams: 03/06/19 10:37 03/06/19 10:37 - ECG O2 Sat by Pulse Oximetry: 99 Medical Decision Making Medical Decision Making: Vaginal bleeding during Will obtain pelvic US and beta HCG to r/o ectopic vs threatened Ab Disposition - Clinical Impression Clinical Impression: Threatened - Patient ED Disposition Is Patient to be Admitted: No Counseled Patient/Family Regarding: Studies Performed, Diagnosis, Need For Followup - Disposition [facility] Disposition: Routine/Home Disposition Time: 12:57 Condition: FAIR Instructions: Threatened Miscarriage Forms: [employer] (New Zealander)
[2019-03-06 10:51] LABS: BASO % 0.4 % (0.0-2.0); EOS # 0.1 K/uL (0.0-0.7); LYMPH # 1.6 K/uL (1.0-4.3); LYMPH % 17.8 % (20.0-40.0); MEAN CELL VOLUME 88.9 fl (81.0-99.0); MEAN CORPUSCULAR HGB CONC 33.7 g/dL (33.0-37.0); MEAN PLATELET VOLUME 9.5 fl (7.2-11.7); MONO # 0.5 K/uL (0.0-0.8); MONO % 5.5 % (0.0-10.0); NEUT # 6.6 K/uL (1.8-7.0); NEUT % 75.3 % (50.0-75.0); NRBC % 0.1 % (0.0-0.0); RBC 4.34 Mil/uL (3.80-5.20); RED CELL DISTRIBUTION WIDTH 13.9 % (11.5-14.5); WHITE BLOOD COUNT 8.8 K/uL (4.8-10.8)
[2019-03-06 11:04] LABS: ALB/GLOB RATIO 1.1 (1.0-2.1); ALBUMIN 3.9 g/dL (3.5-5.0); ALT/SGPT 20 U/L (9-52); AST/SGOT 20 U/L (14-36); BLOOD UREA NITROGEN 6 mg/dl (7-17); CALCIUM 8.8 mg/dL (8.4-10.2); GFR NON-AFRICAN AMERICAN > 60
--- NOTE | 2019-03-06 13:23 | US ---
Date of service: 03/06/2019 PROCEDURE: OB Pelvic Ultrasound HISTORY: vag bleed LMP: 12/10/2018; beta [place]CG [place] [address] COMPARISON: Transvaginal ultrasound 08/04/2018 FINDINGS: UTERUS: Gestational sac: Single intrauterine gestation. Heart rate: 155 bpm. age (Ultrasound estimated): Camille-gestational hemorrhage: None. Date of delivery (Ultrasound estimated) : 09/08/2019 Placenta is posterior and fundal. Inferior edge of the placenta appears to be approximately 1.5 cm away from the internal cervical os presentation variable. motion present. heart motion present. Uterus measures 14.2 x 8.7 by 10.2 cm. Intrauterine gestation is present. CERVIX: Measures 4.0 cm. Long and closed. No cervical abnormality seen. RIGHT OVARY: Nonvisualized. LEFT OVARY: Measures 3.1 x 2.9 x 2.6 cm. A left corpus luteal cyst suggested measuring 1.8 x 1.9 x 1.8 cm.. Normal flow. FREE FLUID: None. OTHER FINDINGS: Limited anatomy IMPRESSION: Single intrauterine gestation with cardiac activity present. In the gestational age by ultrasound per biometric parameters is approximately 13 weeks 3 days +/-1 week 0 days with an estimated date of delivery by ultrasound of 09/08/2019. The clinical dates by LMP are 12 weeks 2 days with an estimated date of delivery per LMP of 09/16/2019.. No perigestational bleeds seen. Other findings as above.
[2019-03-06 13:53] VITALS: BP 113/86; PULSE 72
== END 2019-03-06 12:58 | disposition home or self-care (01) ==
LOC: H.ER 09:27
DX: O20.0 Threatened abortion (principal); Z3A.13 13 weeks gestation of pregnancy